=== PATIENT | female | born 1985 | race African-American/Black ===

== ENCOUNTER 2017-03-30 06:27 | Emergency (ER) | payer SELFPAY ==
[~2017-03-30] VITALS: Ht 157.5 cm; Wt 81.6 kg
[~2017-03-30 06:27] MED LIST: AMOXICILLIN500 MG ORAL; IBUPROFEN600 MG ORAL; NKM; NORCO 5-325 TA1 EAC1 ORAL; RANITIDINE HCL150 MG ORAL; ZOFRAN ODT4 MG ORAL
[2017-03-30 06:40] VITALS: BP 121/66
[2017-03-30] MEDS ORDERED: DuoNeb 0.5-3(2.5)mg/3ml neb HHN ONE (06:45)
--- NOTE | 2017-03-30 06:45 | Emergency Room Report ---
History of Present Illness General Chief Complaint: Pain Source: Patient Present Illness HPI Patient 31-year-old female presented after increased cough generalized body aches and subjective fever. Patient reported having a sore throat. She gradual onset of symptoms. Patient stated that she had fever yesterday. Patient not taking medications. She took some [id number] cough medications. She denied being . She denied any leg pain or swelling. Allergies: Coded Allergies: NO KNOWN ALLERGIES (Unverified Allergy, Unknown, 10/27/15) Patient History Past Medical History: see triage record Last Menstrual Period: march Reviewed Nursing Documentation: PMH: Agreed, PSxH: Agreed Review of Systems All Other Systems: negative except mentioned in HPI Physical Exam Vital Signs Date Time Temp Pulse Resp B/P Pulse Ox O2 Delivery O2 Flow Rate FiO2 03/30/17 06:31 98.2 102 18 131/77 98 Room Air Sp02 EP Interpretation: reviewed, normal General Appearance: normal inspection, well appearing, no apparent distress, alert, GCS 15 Head: atraumatic ENT: normal ENT inspection, hearing grossly normal, normal voice Neck: normal inspection, full range of motion, supple, no bony tend Respiratory: normal inspection, lungs clear, normal breath sounds, no respiratory distress, no retraction, no wheezing Cardiovascular #1: regular rate, rhythm, no edema Gastrointestinal: normal inspection, normal bowel sounds, non tender, soft, no guarding, no hernia Genitourinary: no CVA tenderness Musculoskeletal: normal inspection, back normal, normal range of motion Neurologic: normal inspection, alert, oriented x3, responsive, fuel cell technician III-XII nml as tested, speech normal Psychiatric: normal inspection, judgement/insight normal, mood/affect normal Skin: normal inspection, normal color, no rash Medical Decision Making ER Course Patient presented for cough. Differential diagnosis included but was not limited to bronchitis, pneumonia, pulmonary embolism, pericarditis, asthma, foreign body. Because of complexity of patient's case limaging studies were ordered.the patient was given breathing treatment with DuoNeb. The patient is advised to follow up with primary care doctor in 1-2 days. Patient is advised to return if any worsening condition or if any changes in status that are concerning. Chest X-Ray Diagnostic Results EP Interpretation: Yes Findings: no consolidation, no effusion, no pneumothorax, no acute cardiopulmonary disease Number of Views: 1 Last Vital Signs Date Time Temp Pulse Resp B/P Pulse Ox O2 Delivery O2 Flow Rate FiO2 03/30/17 06:31 98.2 102 18 131/77 98 Room Air Status: improved Disposition: HOME, SELF-CARE Condition: Stable Dar Eagle March 30, 2017 06:45
[2017-03-30] MEDS ORDERED: PROMETHAZINE-D118 ML ORAL (06:50)
[2017-03-30] MEDS ORDERED: CLARITIN10 M1 ORAL (06:50)
[2017-03-30 07:36] VITALS: BP 121/66
--- NOTE | 2017-04-01 09:18 | Diagnostic Imaging Report ---
Indication: Dyspnea Comparison: 12/07/2008 A single view chest radiograph was obtained. Findings: Cardiomediastinal appearance is within normal limits for age. Pulmonary vascularity is appropriate. The diaphragmatic contour is smooth and costophrenic angles are sharp. No pleural effusions are identified. The bones are unremarkable. Impression: No acute findings
== END 2017-03-30 07:38 | disposition home or self-care (01) ==
LOC: EMR 06:45
DX: R05 Cough (principal); J02.9 Acute pharyngitis, unspecified; R52 Pain, unspecified
CPT/HCPCS: 71010; 81025; 94640; 94664; 99284; J7620

== ENCOUNTER 2017-05-28 11:56 | Emergency (ER) | payer SELFPAY ==
[~2017-05-28] VITALS: Ht 157.5 cm; Wt 77.1 kg
[~2017-05-28 11:56] MED LIST changes: +CLARITIN10 M1 ORAL; +PROMETHAZINE-D118 ML ORAL
[2017-05-28 12:44] VITALS: BP 129/74
--- NOTE | 2017-05-28 12:47 | Emergency Room Report ---
History of Present Illness General Chief Complaint: Flu Like Symptoms Source: Medical Record Present Illness HPI 31-year-old female presents to the emergency department complaining of intermittent productive cough, nasal congestion, general malaise, subjective fevers, chest congestion x1 month. Patient states that she was previously treated conservatively and took all medications without relief. Patient states that she continues to have symptoms. She denies recent travel or ill contacts. Patient denies sore throat, neck pain or stiffness. Patient does report upper back pain that she describes as a tight discomfort that is worsened by coughing. Denies trauma or fall, denies edema.Denies CP, Palpitations, LOC, AMS , dizziness, Changes in Vision, Sensation, paresthesias, or a sudden severe headache. Allergies: Coded Allergies: NO KNOWN ALLERGIES (Unverified Allergy, Unknown, 10/27/15) Patient History Past Medical History: see triage record Past Surgical History: none Pertinent Family History: none Last Menstrual Period: Now: No : 2 Para: 2 Reviewed Nursing Documentation: PMH: Agreed, PSxH: Agreed Nursing Documentation-PMH Past Medical History: No History, Except For Review of Systems All Other Systems: negative except mentioned in HPI Physical Exam Vital Signs Date Time Temp Pulse Resp B/P Pulse Ox O2 Delivery O2 Flow Rate FiO2 05/28/17 12:03 99.7 108 18 129/74 97 Room Air Sp02 EP Interpretation: reviewed, normal General Appearance: no apparent distress, alert, GCS 15 Head: normocephalic, atraumatic Eyes: bilateral eye PERRL, bilateral eye normal inspection ENT: hearing grossly normal, normal pharynx, no angioedema, normal voice Neck: full range of motion, no meningismus, no bony tend, supple/symm/no masses Respiratory: chest non-tender, lungs clear, normal breath sounds, no wheezing, speaking full sentences Cardiovascular #1: regular rate, rhythm, no edema Gastrointestinal: non tender, soft, no guarding, no rebound Rectal: deferred Genitourinary: normal inspection, no CVA tenderness Musculoskeletal: back normal, gait/station normal, normal range of motion, tender - thoracic paraspinal ttp, no midline ttp. Neurologic: alert, oriented x3, responsive, motor strength/tone normal, sensory intact, normal gait, speech normal Psychiatric: judgement/insight normal, memory normal, mood/affect normal Skin: normal color, no rash, warm/dry, well hydrated Lymphatic: no adenopathy Medical Decision Making PA Attestation Dr. don is my supervising Physician whom patient management has been discussed with. Diagnostic Impression: Primary Impression: Atypical pneumonia Additional Impression: Muscle strain ER Course 31-year-old female presents to the emergency department complaining of intermittent productive cough, nasal congestion, general malaise, subjective fevers, chest congestion x1 month. Patient states that she was previously treated conservatively and took all medications without relief. Patient states that she continues to have symptoms. She denies recent travel or ill contacts. Patient denies sore throat, neck pain or stiffness. Patient does report upper back pain that she describes as a tight discomfort that is worsened by coughing. Denies trauma or fall, denies edema, dyspnea, SOB or wheezing.Denies CP, Palpitations, LOC, AMS, dizziness, Changes in Vision, Sensation, paresthesias, or a sudden severe headache. Ddx considered but are not limited to URI, pneumonia, PE, strep pharyngitis, meningitis, [place]. Vital signs: Pt. is afebrile, mildly tachycardic at 108 bpm- the remaining VS are WNL H&PE are most consistent with atypical pneumonia and muscle strain, pt. is tachycardic, and reports intermittent fevers with productive cough. will treat pt. with abx as she failed conservative therapy no LAD to suggest mono. ORDERS: none required at this time, the diagnosis is clinical ED INTERVENTIONS: -Motrin PO DISCHARGE: At this time pt. is stable for d/c to home. Will provide printed patient care instructions, and any necessary prescriptions. Care plan and follow up instructions have been discussed with the patient prior to discharge. Last Vital Signs Date Time Temp Pulse Resp B/P Pulse Ox O2 Delivery O2 Flow Rate FiO2 05/28/17 12:13 108 18 Room Air 05/28/17 12:03 99.7 129/74 97 Disposition: HOME, SELF-CARE Condition: Stable Scripts Cetirizine Hcl* (ZYRTEC*) 10 Mg Tablet 10 MG ORAL DAILY, #30 TAB 0 Refills Prov: Moon Hannon P.A. 05/28/17 Ibuprofen* (MOTRIN*) 600 Mg Tablet 600 MG ORAL THREE TIMES A DAY, #20 TAB 0 Refills Prov: HannonMoon chavis 05/28/17 Cyclobenzaprine Hcl* (FLEXERIL*) 10 Mg Tablet 10 MG ORAL THREE TIMES A DAY for 7 Days, #21 TAB Prov: Moon Hannon 05/28/17 Guaifenesin (Guaifenesin) 1,200 Mg Tab.er.12h 1200 MG PO BID for 10 Days, #20 TAB Prov: Moon Hannon 05/28/17 Azithromycin* (ZITHROMAX*) 250 Mg Tablet 250 MG ORAL DAILY, #6 TAB 0 Refills Take two tables once daily for 1 day, then one tablet once daily for 4 days. Prov: Moon Hannon 05/28/17 Referrals: NON PHYSICIAN (PCP) Patient Instructions: Upper Respiratory Infection, Adult, [id number] Additional Instructions: Take medications as directed. Follow up with a Primary Care Provider in 3-5 days, even if your symptoms have resolved. --Please review list of primary care clinics, if you do not already have a primary care provider Return sooner to ED if new symptoms occur, or current symptoms become worse. Do not drink alcohol, drive, or operate heavy machinery while taking Muscle Relaxers as this may cause drowsiness. - Please note that this Emergency Department Report was dictated using [employer] affairs vice president technology software, occasionally this can lead to erroneous entry secondary to interpretation by the dictation equipment. Moon Hannon May 28, 2017 12:46
[2017-05-28] MEDS ORDERED: ZYRTEC10 MG ORAL (12:50)
[2017-05-28] MEDS ORDERED: GUAIFENESIN1200 MG PO (12:50)
[2017-05-28] MEDS ORDERED: ZITHROMAX250 MG ORAL (12:50)
[2017-05-28] MEDS ORDERED: IBUPROFEN600 MG ORAL (12:50)
[2017-05-28] MEDS ORDERED: CYCLOBENZAPRINE10 MG ORAL (12:50)
[2017-05-28 13:05] VITALS: BP 124/69
[2017-05-28 13:08] VITALS: BP 124/69
== END 2017-05-28 13:08 | disposition home or self-care (01) ==
LOC: EMR 12:14
DX: J18.9 Pneumonia, unspecified organism (principal); S29.011A Strain of muscle and tendon of front wall of thorax, initial encounter; X58.XXXA Exposure to other specified factors, initial encounter; Y92.89 Other specified places as the place of occurrence of the external cause
CPT/HCPCS: 99284

== ENCOUNTER 2017-10-11 10:20 | Emergency (ER) | payer MEDICAID ==
[~2017-10-11] VITALS: Ht 162.6 cm; Wt 77.1 kg
[~2017-10-11 10:20] MED LIST changes: +CYCLOBENZAPRINE10 MG ORAL; +GUAIFENESIN1200 MG PO; +ZITHROMAX250 MG ORAL; +ZYRTEC10 MG ORAL
--- NOTE | 2017-10-11 10:46 | Emergency Room Report ---
History of Present Illness General Chief Complaint: Chest Pain Source: Patient Present Illness HPI The patient presents with substernal chest pain. It's pleuritic and positional. Denies any fevers or chills. She hears herself wheezing on occasion. She was seen here before and told she had a respiratory infection the question of pneumonia. She denies any productive cough at this time. She feels heaviness in her chest. Initially the pain went severe as 8/10. This helped by ibuprofen. She takes 1-2 Advil at night and this helps her out. The pain is now slick 6/10. Denies any calf pain or swelling. She was diagnosed with atypical pneumonia when she has some similar symptoms, but with more pronounced cough. Her last period was started on and normal for her. She does not believe she is . The patient occasionally smokes but rarely. No cough, NVD, dysuria, rashes, headache, joint pain, abdominal pain. Allergies: Coded Allergies: NO KNOWN ALLERGIES (Unverified Allergy, Unknown, 10/27/15) Patient History Past Medical History: see triage record Social History: Reports: smoking Social History Narrative 2 sons Last Menstrual Period: Current Reviewed Nursing Documentation: PMH: Agreed, PSxH: Agreed Nursing Documentation-PMH Past Medical History: No History, Except For Review of Systems All Other Systems: negative except mentioned in HPI Physical Exam Vital Signs Date Time Temp Pulse Resp B/P (MAP) Pulse Ox O2 Delivery O2 Flow Rate FiO2 10/11/17 10:25 97.0 74 11 119/71 100 Room Air Sp02 EP Interpretation: reviewed, normal General Appearance: well appearing, no apparent distress, GCS 15 Head: normocephalic Eyes: bilateral eye normal inspection, bilateral eye PERRL ENT: moist mucus membranes Neck: supple Respiratory: lungs clear, normal breath sounds, other - chest wall tenderness which re-creates pain Cardiovascular #1: regular rate, rhythm Cardiovascular #2: 2+ radial (R) Gastrointestinal: normal inspection, normal bowel sounds, non tender, no mass, non-distended Musculoskeletal: back normal, gait/station normal, normal range of motion, no calf tenderness Neurologic: alert, oriented x3, grossly normal Psychiatric: mood/affect normal - subdued Skin: normal inspection, warm/dry Medical Decision Making Diagnostic Impression: Primary Impression: Costochondritis ER Course Patient presents with chest pain. Ddx; costochondritis, pleurisy, pericarditis , pna, GERD amongst others. Patient refusing IV or blood draw. Hx and exam against PE. Evaluation with EKG and CXR. Treatment with ibuprofen. EKG without injury or inflammation. CXR no infiltrates. Improved with treatment. Discussed cause and need for follow up with PMD. Patient stable for outpatient observation and treatment. EKG Diagnostic Results Rate: normal Rhythm: NSR ST Segments: no acute changes Rhythm Strip Diag. Results EP Interpretation: yes Rhythm: NSR, no PVC's, no ectopy Chest X-Ray Diagnostic Results Chest X-Ray Diagnostic Results : Chest X-Ray Ordered: Yes # of Views/Limited/Complete: 1 View Indication: Chest Pain EP Interpretation: Yes Interpretation: no consolidation, no effusion, no pneumothorax, no acute cardiopulmonary disease Impression: No acute disease Electronically Signed by: James Evans MD Last Vital Signs Date Time Temp Pulse Resp B/P (MAP) Pulse Ox O2 Delivery O2 Flow Rate FiO2 10/11/17 13:13 97.0 73 17 117/70 100 Room Air Status: improved Disposition: HOME, SELF-CARE Condition: Improved Scripts Ibuprofen* (MOTRIN*) 600 Mg Tablet 600 MG ORAL Q6H Y for For Pain, #20 TAB Prov: James Evans M.D. 10/11/17 Tramadol Hcl* (ULTRAM*) 50 Mg Tablet 50 MG ORAL Q6H Y for For Pain, #10 TAB 0 Refills Prov: James Evans M.D. 10/11/17 Referrals: NON PHYSICIAN (PCP) James Evans M.D. Oct 11, 2017 10:46
--- NOTE | 2017-10-11 11:24 | Diagnostic Imaging Report ---
Indication: Chest pain Technique: XRAY CHEST 1 V Comparison: 03/30/17 Findings: The cardiomediastinal silhouette is within normal limits. There is no focal consolidation, pneumothorax or pleural effusion. Osseous structures demonstrate no acute abnormality. Impression: No acute cardiopulmonary disease.
[2017-10-11 12:02] VITALS: BP 117/70
[2017-10-11] MEDS ORDERED: TRAMADOL HCL50 MG ORAL (12:08)
[2017-10-11] MEDS ORDERED: IBUPROFEN600 MG ORAL (12:08)
[2017-10-11 13:13] VITALS: BP 117/70
--- NOTE | 2017-10-16 11:04 | Cardiology Report ---
APPROVED REPORT EKG Measurement Heart [id number] Normal sinus rhythm Normal ECG
== END 2017-10-11 12:15 | disposition home or self-care (01) ==
LOC: EMR 10:38
DX: M94.0 Chondrocostal junction syndrome [Tietze] (principal); Z87.01 Personal history of pneumonia (recurrent)
CPT/HCPCS: 71010; 93005; 99284

== ENCOUNTER 2017-10-30 10:29 | Emergency (ER) | payer MEDICAID ==
[~2017-10-30] VITALS: Ht 157.5 cm; Wt 72.6 kg
[~2017-10-30 10:29] MED LIST changes: +TRAMADOL HCL50 MG ORAL
[2017-10-30] MEDS ORDERED: DiphenhydrAMINE 50mg/ml Inj IVP ONE (11:15)
[2017-10-30] MEDS ORDERED: Ketorolac 30mg Inj IV ONE (11:15)
[2017-10-30] MEDS ORDERED: Metoclopramide 10mg/2ml Inj IVP ONE (11:15)
[2017-10-30 12:28] LABS: BASOPHILS % (AUTO) 1.8 % (0.0-2.0); EOSINOPHILS % (AUTO) 4.4 % (0.0-3.0); HEMATOCRIT 42.7 % (37.0-47.0); HEMOGLOBIN 13.4 G/DL (12.0-16.0); LYMPHOCYTES % (AUTO) 36.3 % (20.0-45.0); MEAN CORPUSCULAR VOLUME 87 FL (80-99); MONOCYTES % (AUTO) 9.5 % (1.0-10.0); PLATELET COUNT 246 K/UL (150-450); RED BLOOD COUNT 4.89 M/UL (4.20-5.40); WHITE BLOOD COUNT 8.9 K/UL (4.8-10.8)
[2017-10-30 12:30] LABS: APPEARANCE,URINE SLIGHTLY CLOUDY; BILIRUBIN, URINE NEGATIVE (NEGATIVE); GLUCOSE, URINE (UA) NEGATIVE (NEGATIVE); KETONES,URINE NEGATIVE (NEGATIVE); LEUKOCYTE ESTERASE ,URINE 1+ (NEGATIVE); NITRITE,URINE NEGATIVE (NEGATIVE); PH,URINE 7 (4.5-8.0); PROTEIN,URINE 1+ (NEGATIVE); UROBILINOGEN,URINE 8 MG/DL (0.0-1.0)
[2017-10-30 12:31] LABS: COLOR,URINE YELLOW
[2017-10-30 12:38] LABS: ANION GAP 10 mmol/L (5-15); BLOOD UREA NITROGEN 6 mg/dL (7-18); CALCIUM 8.2 MG/DL (8.5-10.1); CARBON DIOXIDE 26 MMOL/L (21-32); CHLORIDE 105 MMOL/L (98-107); CREATININE 0.8 MG/DL (0.55-1.30); INR 0.9 (0.9-1.1); POTASSIUM 3.9 MMOL/L (3.5-5.1); SODIUM 141 MMOL/L (136-145)
[2017-10-30 12:43] LABS: ALANINE AMINOTRANSFERASE 27 U/L (12-78); ALKALINE PHOSPHATASE 78 U/L (46-116); ASPARTATE AMINO TRANSFERASE 18 U/L (15-37); BILIRUBIN,TOTAL 0.4 MG/DL (0.2-1.0)
--- NOTE | 2017-10-30 13:51 | Emergency Room Report ---
History of Present Illness General Chief Complaint: Abdominal Pain Source: Patient, Medical Record Present Illness HPI Patient presents with RLQ pain which began yesterday. Constant, 6/10, not radiating. No fevers, nausea, vomiting, diarrhea. No dysuria. Uncertain if . One partner. No vaginal d/c. LNMP 3 weeks ago and normal. No URI sy, rashes, chest pain, headache. Allergies: Coded Allergies: NO KNOWN ALLERGIES (Unverified Allergy, Unknown, 10/27/15) Patient History Past Medical History: see triage record Social History: Reports: smoking Social History Narrative with son Last Menstrual Period: October 09, 2017 Now: No : 3 Para: 2 Reviewed Nursing Documentation: PMH: Agreed, PSxH: Agreed Nursing Documentation-PMH Past Medical History: No Stated History Review of Systems All Other Systems: negative except mentioned in HPI Physical Exam Vital Signs Date Time Temp Pulse Resp B/P (MAP) Pulse Ox O2 Delivery O2 Flow Rate FiO2 10/30/17 10:35 97.9 110 18 106/67 97 Room Air Sp02 EP Interpretation: reviewed, normal General Appearance: well appearing, no apparent distress, GCS 15 Head: normocephalic Eyes: bilateral eye normal inspection, bilateral eye PERRL ENT: moist mucus membranes Neck: supple Respiratory: lungs clear, normal breath sounds Cardiovascular #1: regular rate, rhythm Cardiovascular #2: 2+ radial (R) Gastrointestinal: normal inspection, normal bowel sounds, no mass, non- distended, tenderness - RLQ suprapubic Genitourinary: normal inspection, adnexa normal, cervix normal, ext genitalia/ vag normal, os closed, other - no CMT, adnexal fullness. Uterus generous Musculoskeletal: back normal, gait/station normal, normal range of motion Neurologic: alert, oriented x3, grossly normal Psychiatric: mood/affect normal Skin: normal inspection, warm/dry Medical Decision Making Diagnostic Impression: Primary Impression: Suprapubic abdominal pain ER Course Patient with R suprapubic pain. DDX: appendicitis, ectopic, UTI, ovarian cyst, fibroid, PID amongst others. Exam against PID. Urgent evaluation with labs including preg test. Treatment with IV hydration and analgesia. Labs with neg preg, clear urine, normal WBC. Patient improved with treatment. Discussed need for ultrasound if pain worsens. Patient stable for outpatient observation and treatment. Laboratory Tests Test 10/30/17 11:30 10/30/17 11:40 Urine Color Yellow Urine Appearance Slightly cloudy Urine pH 7 (4.5-8.0) Urine Specific [place] 1.005 (1.005-1.035) Urine Protein 1+ (NEGATIVE) H Urine Glucose (UA) Negative (NEGATIVE) Urine Ketones Negative (NEGATIVE) Urine Occult Blood Negative (NEGATIVE) Urine Nitrite Negative (NEGATIVE) Urine Bilirubin Negative (NEGATIVE) Urine Urobilinogen 8 MG/DL (0.0-1.0) H Urine Leukocyte Esterase 1+ (NEGATIVE) H Urine RBC 0-2 /HPF (0 - 2) Urine WBC 2-4 /HPF (0 - 2) Urine Squamous Epithelial Cells Moderate /LPF (NONE/OCC) H Urine Bacteria Few /HPF (NONE) Urine HCG, Qualitative Negative Chlamydia trachomatis RNA Pending Neisseria gonorrhoeae RNA Pending White Blood Count 8.9 K/UL (4.8-10.8) Red Blood Count 4.89 M/UL (4.20-5.40) Hemoglobin 13.4 G/DL (12.0-16.0) Hematocrit 42.7 % (37.0-47.0) Mean Corpuscular Volume 87 FL (80-99) Mean Corpuscular Hemoglobin 27.5 PG (27.0-31.0) Mean Corpuscular Hemoglobin Concent 31.5 G/DL (32.0-36.0) L Red Cell Distribution Width 13.0 % (11.6-14.8) Platelet Count 246 K/UL (150-450) Mean Platelet Volume 11.0 FL (6.5-10.1) H Neutrophils (%) (Auto) 48.0 % (45.0-75.0) Lymphocytes (%) (Auto) 36.3 % (20.0-45.0) Monocytes (%) (Auto) 9.5 % (1.0-10.0) Eosinophils (%) (Auto) 4.4 % (0.0-3.0) H Basophils (%) (Auto) 1.8 % (0.0-2.0) Prothrombin Time 9.4 SEC (9.30-11.50) Prothrombin Time INR 0.9 (0.9-1.1) PTT 26 SEC (23-33) Sodium Level 141 MMOL/L (136-145) Potassium Level 3.9 MMOL/L (3.5-5.1) Chloride Level 105 MMOL/L (98-107) Carbon Dioxide Level 26 MMOL/L (21-32) Anion Gap 10 mmol/L (5-15) Blood Urea Nitrogen 6 mg/dL (7-18) L Creatinine 0.8 MG/DL (0.55-1.30) Estimate Glomerular Filtration Rate > 60 mL/min (>60) Glucose Level 117 MG/DL (74-106) H Calcium Level 8.2 MG/DL (8.5-10.1) L Total Bilirubin 0.4 MG/DL (0.2-1.0) Aspartate Amino Transferase (AST) 18 U/L (15-37) Alanine Aminotransferase (ALT) 27 U/L (12-78) Alkaline Phosphatase 78 U/L (46-116) Total Protein 7.9 G/DL (6.4-8.2) Albumin 4.0 G/DL (3.4-5.0) Globulin 3.9 g/dL Albumin/Globulin Ratio 1.0 (1.0-2.7) Lipase 124 U/L (73-393) Microbiology Date/Time Source Procedure Growth Status 10/30/17 13:00 Vaginal Wet Prep - Final Complete Last Vital Signs Date Time Temp Pulse Resp B/P (MAP) Pulse Ox O2 Delivery O2 Flow Rate FiO2 10/30/17 14:20 97.9 79 15 110/74 100 Room Air Status: improved Disposition: HOME, SELF-CARE Condition: Improved Scripts Ibuprofen* (MOTRIN*) 600 Mg Tablet 600 MG ORAL Q6H Y for For Pain, #20 TAB Prov: James Evans M.D. 10/30/17 Tramadol Hcl* (ULTRAM*) 50 Mg Tablet 50 MG ORAL Q6H Y for For Pain, #12 TAB 0 Refills Prov: James Evans M.D. 10/30/17 James Evans M.D. Oct 30, 2017 13:51
[2017-10-30] MEDS ORDERED: TRAMADOL HCL50 MG ORAL (13:57)
[2017-10-30] MEDS ORDERED: IBUPROFEN600 MG ORAL (13:57)
[2017-10-30 14:20] VITALS: BP 110/74
== END 2017-10-30 14:20 | disposition home or self-care (01) ==
LOC: EMR 11:11
DX: R10.31 Right lower quadrant pain (principal)
CPT/HCPCS: 36415; 80053; 81003; 81025; 83690; 85025; 85610; 85730; 86850; 86900; 86901; 87210; 87491; 87590; 96361; 96374; 96375; 99284; J1200; J1885; J2765

== ENCOUNTER 2017-12-14 23:49 | Emergency (ER) | payer MEDICAID, OTHER ==
[~2017-12-14] VITALS: Ht 157.5 cm; Wt 75.7 kg
--- NOTE | 2017-12-15 00:25 | Emergency Room Report ---
History of Present Illness General Chief Complaint: Upper Respiratory Illness Source: Patient Present Illness HPI Patient with 3 days of URI, cough, SOB, aches. Took dayquil and had anxiety reaction with increased HR and dyspnea. Recognized anxiety attack and calmed herself. Improved, but still with congestion and cough. No NVD, dysuria, rashes. Some stress with work. Recurrent problems with anxiety. Allergies: Coded Allergies: NO KNOWN ALLERGIES (Unverified Allergy, Unknown, 10/27/15) Patient History Past Medical History: see triage record Social History: Reports: smoking Social History Narrative here with son Last Menstrual Period: 12/10/17 Now: No : 4 Para: 2 Reviewed Nursing Documentation: PMH: Agreed, PSxH: Agreed Nursing Documentation-PMH Past Medical History: No Stated History Review of Systems All Other Systems: negative except mentioned in HPI Physical Exam Vital Signs Date Time Temp Pulse Resp B/P (MAP) Pulse Ox O2 Delivery O2 Flow Rate FiO2 12/14/17 23:58 97.7 94 14 128/80 98 Room Air Sp02 EP Interpretation: reviewed, normal General Appearance: well appearing, no apparent distress Head: normocephalic, atraumatic Eyes: bilateral eye normal inspection, bilateral eye PERRL ENT: hearing grossly normal, normal pharynx, normal voice, TMs + canals normal , moist mucus membranes, nasal congestion - clear Neck: full range of motion, supple Respiratory: lungs clear, normal breath sounds, no respiratory distress, speaking full sentences Cardiovascular #1: regular rate, rhythm Gastrointestinal: normal inspection, overweight Musculoskeletal: gait/station normal, normal range of motion, no calf tenderness Neurologic: alert, normal gait, grossly normal Psychiatric: mood/affect normal, depressed affect Skin: no rash Medical Decision Making Diagnostic Impression: Primary Impression: Upper respiratory infection Qualified Codes: J06.9 - Acute upper respiratory infection, unspecified Additional Impression: Anxiety ER Course Patient with 3 days of URI and reaction to Dayquil. DDX: anxiety, PE, bronchitis, sinusitis, URI amongst others. Clinically, risk for PE low to nil. Needs symptomatic treatment. No imaging or labs indicated. As component is with anxiety, avoid decongestants - focus on antihistamines. Discussion with patient regarding other treatment options for anxiety. Patient stable for outpatient observation and treatment. Last Vital Signs Date Time Temp Pulse Resp B/P (MAP) Pulse Ox O2 Delivery O2 Flow Rate FiO2 12/15/17 00:36 97.7 94 14 128/80 98 Room Air Status: unchanged Disposition: HOME, SELF-CARE Condition: Stable Scripts Chlorpheniramine Maleate (CHLOR-TRIMETON) 4 Mg Tablet 4 MG PO Q6HR Y for congestion, #14 TAB Prov: James Evans M.D. 12/15/17 Guaifenesin/Codeine Phos* (ROBITUSSIN AC*) 118 Ml Liquid 1 TSP ORAL Q6H Y for For Cough, #90 ML 0 Refills Prov: James Evans M.D. 12/15/17 James Evans M.D. Dec 15, 2017 00:25
[2017-12-15] MEDS ORDERED: CHLOR-TRIMETON4 MG PO (00:27)
[2017-12-15] MEDS ORDERED: GUAIFENESIN-CO118 M1 ORAL (00:27)
[2017-12-15 00:35] VITALS: BP 128/80
[2017-12-15 00:36] VITALS: BP 128/80
== END 2017-12-15 00:37 | disposition home or self-care (01) ==
LOC: EMR 12-15 00:12
DX: J06.9 Acute upper respiratory infection, unspecified (principal); F41.9 Anxiety disorder, unspecified; F17.200 Nicotine dependence, unspecified, uncomplicated
CPT/HCPCS: 99283

== ENCOUNTER 2018-09-03 23:39 | Emergency (ER) | payer MEDICAID ==
[~2018-09-03] VITALS: Ht 160 cm; Wt 68.0 kg
[~2018-09-03 23:39] MED LIST changes: +CHLOR-TRIMETON4 MG PO; +GUAIFENESIN-CO118 M1 ORAL
[2018-09-04] MEDS ORDERED: Albuterol ud Inhalation HHN ONE (00:15)
[2018-09-04] MEDS ORDERED: Solu-MEDROL 125mg Inj IVP ONE (00:15)
[2018-09-04] MEDS ORDERED: Ketorolac 30mg Inj IV ONE (00:15)
[2018-09-04] MEDS ORDERED: ALBUTEROL SULF8.5 GM INH (00:17)
[2018-09-04] MEDS ORDERED: IBUPROFEN600 MG ORAL (00:17)
[2018-09-04] MEDS ORDERED: GUAIFENESIN-CO118 M1 ORAL (00:17)
--- NOTE | 2018-09-04 00:17 | Emergency Room Report ---
History of Present Illness General Chief Complaint: Flu Like Symptoms Source: Patient Present Illness HPI Is a 32-year-old female with no significant past medical history. She presents with chief complaint of cough, fever, chills, and body pain. Onset for last 2 days. Also congested. Worse with inspiration and coughing. Better with rest. [id number]-[id number] medicine is not helping. Coughing productive of whitish phlegm. Fever subjective nature. Pain is 8 out of 10. Allergies: Coded Allergies: NO KNOWN ALLERGIES (Unverified Allergy, Unknown, 10/27/15) Patient History Past Medical History: see triage record, old chart reviewed Past Surgical History: other Pertinent Family History: none Social History: Denies: smoking Last Menstrual Period: 08/26/18 Now: No : 4 Para: 2 Immunizations: other Reviewed Nursing Documentation: PMH: Agreed; PSxH: Agreed Nursing Documentation-PMH Past Medical History: No History, Except For Review of Systems Constitutional: Reports: chills, fever, malaise Eye: Denies: eye pain, blurred vision ENT: Denies: ear pain, nose congestion, throat swelling Respiratory: Reports: cough, sputum; Denies: shortness of breath Cardiovascular: Reports: chest pain; Denies: palpitations Gastrointestinal: Denies: abdominal pain, diarrhea, nausea, vomiting Musculoskeletal: Denies: back pain, joint pain Skin: Denies: rash Neurological: Denies: headache, numbness Endocrine: Denies: increased thirst, increased urine Hematologic/Lymphatic: Denies: easy bruising All Other Systems: negative except mentioned in HPI Physical Exam Vital Signs Date Time Temp Pulse Resp B/P (MAP) Pulse Ox O2 Delivery O2 Flow Rate FiO2 09/03/18 23:54 98.1 86 18 126/76 98 Room Air vitals normal Sp02 EP Interpretation: reviewed, normal General Appearance: well appearing, no apparent distress, alert Head: normocephalic, atraumatic Eyes: bilateral eye PERRL, bilateral eye EOMI ENT: hearing grossly normal, normal pharynx Neck: full range of motion, supple, no meningismus Respiratory: chest non-tender, lungs clear, normal breath sounds, other - coughing with inspiration Cardiovascular #1: regular rate, rhythm, no murmur Gastrointestinal: normal bowel sounds, non tender, no mass, no organomegaly, no bruit, non-distended Musculoskeletal: back normal, gait/station normal, normal range of motion Psychiatric: mood/affect normal Skin: warm/dry Medical Decision Making Diagnostic Impression: Primary Impression: Flu-like symptoms Additional Impression: Upper respiratory infection Qualified Codes: J06.9 - Acute upper respiratory infection, unspecified ER Course Patient presents with upper rest or infection with bronchospasm. No evidence of bacterial infection to warrant antibiotics. We'll discharge home. Last Vital Signs Date Time Temp Pulse Resp B/P (MAP) Pulse Ox O2 Delivery O2 Flow Rate FiO2 09/03/18 23:54 98.1 86 18 126/76 98 Room Air Status: improved Disposition: HOME, SELF-CARE Condition: Stable Scripts Guaifenesin/Codeine Phos* (ROBITUSSIN AC*) 118 Ml Liquid 5 ML ORAL Q6H PRN for For Cough, #118 ML 0 Refills Prov: Kenrick Ybarra MD 09/04/18 Ibuprofen* (MOTRIN*) 600 Mg Tablet 600 MG ORAL THREE TIMES A DAY, #30 TAB 0 Refills Prov: Kenrick Ybarra MD 09/04/18 Albuterol Sulfate* (ALBUTEROL SULFATE MDI*) 8.5 Gm Hfa.aer.ad 2 PUFF INH Q4H PRN for cough/wheezing, #1 EA 0 Refills Prov: Kenrick Ybarra MD 09/04/18 Additional Instructions: Follow-up with your Dr. in 2-3 days. Increase fluid. Return if symptom worsen. Kenrick Ybarra MD Sep 04, 2018 00:17
[2018-09-04 00:32] VITALS: BP 130/80
[2018-09-04 01:05] VITALS: BP 130/80
== END 2018-09-04 01:05 | disposition home or self-care (01) ==
LOC: EMR 09-04 00:24
DX: J06.9 Acute upper respiratory infection, unspecified (principal)
CPT/HCPCS: 94640; 94664; 96361; 96374; 96375; 99284; J1885; J2930

== ENCOUNTER 2019-04-14 11:01 | Emergency (ER) | payer MEDICAID ==
[~2019-04-14] VITALS: Ht 157.5 cm; Wt 63.5 kg
[~2019-04-14 11:01] MED LIST changes: +ALBUTEROL SULF8.5 GM INH
[2019-04-14] MEDS ORDERED: NKM (11:10)
[2019-04-14 12:19] VITALS: BP 119/65
[2019-04-14] MEDS ORDERED: ALBUTEROL SULF8.5 GM INH (12:37)
[2019-04-14] MEDS ORDERED: PROMETHAZINE-C118 M1 ORAL (12:37)
[2019-04-14] MEDS ORDERED: FIORICET1 EA ORAL (12:37)
[2019-04-14 12:45] VITALS: BP 119/65
--- NOTE | 2019-04-15 14:13 | Emergency Room Report ---
History of Present Illness General Chief Complaint: Headache Source: Patient Present Illness HPI 33-year-old female presents ED for evaluation. Patient complaining of cough for the last 3 days. Cough is dry. Worse at night. Denies fevers or chills. Is having pain with coughing. Midsternal, dull, 7 out of 10, nonradiating. States that she has had this similar pain before after repeated bouts of coughing. States that she is also been experiencing a headache. Which started yesterday. Throbbing, frontal, 10, nonradiating. Denies photophobia or blurry vision. Denies nausea or vomiting. Denies neck stiffness. No other aggravating relieving factors. Denies any other associated symptoms Allergies: Coded Allergies: NO KNOWN ALLERGIES (Unverified Allergy, Unknown, 10/27/15) Patient History Past Medical History: none Past Surgical History: none Pertinent Family History: none Social History: Denies: smoking, alcohol use, drug use Last Menstrual Period: april Now: No : 4 Para: 2 Immunizations: UTD Reviewed Nursing Documentation: PMH: Agreed; PSxH: Agreed Review of Systems All Other Systems: negative except mentioned in HPI Physical Exam Vital Signs Date Time Temp Pulse Resp B/P (MAP) Pulse Ox O2 Delivery O2 Flow Rate FiO2 04/14/19 11:06 98.1 94 18 118/70 (86) 100 Room Air Sp02 EP Interpretation: reviewed, normal General Appearance: no apparent distress, alert, GCS 15, non-toxic Head: normocephalic, atraumatic Eyes: bilateral eye normal inspection, bilateral eye PERRL, bilateral eye EOMI ENT: hearing grossly normal, normal pharynx, no angioedema, normal voice Neck: full range of motion, supple, no meningismus, supple/symm/no masses Respiratory: chest non-tender, lungs clear, normal breath sounds, speaking full sentences Cardiovascular #1: regular rate, rhythm, no edema Cardiovascular #2: 2+ carotid (R), 2+ carotid (L), 2+ radial (R), 2+ radial (L) , 2+ dorsalis pedis (R), 2+ dorsalis pedis (L) Gastrointestinal: normal bowel sounds, non tender, soft, non-distended, no guarding, no rebound Rectal: deferred Genitourinary: normal inspection, no CVA tenderness Musculoskeletal: back normal, gait/station normal, normal range of motion, non- tender Neurologic: alert, oriented x3, responsive, crap game box person III-XII nml as tested, motor strength/tone normal, sensory intact, speech normal Psychiatric: judgement/insight normal, memory normal, mood/affect normal, no suicidal/homicidal ideation Reflexes: 3+ bicep (R), 3+ bicep (L), 3+ tricep (R), 3+ tricep (L), 3+ knee (R) , 3+ knee (L) Skin: normal color, no rash, warm/dry, well hydrated Lymphatic: no adenopathy Medical Decision Making Diagnostic Impression: Primary Impression: Headache Qualified Codes: R51 - Headache Additional Impressions: Bronchitis Chest wall pain ER Course Hospital Course 33-year-old female presents to ED complaining of cough, chest pain. headache Differential diagnoses include: URI, pharyngitis, otitis media, asthma Clinical course Patient placed on stretcher. After initial history, physical exam reveals a female in no acute distress. Bilateral TM unremarkable. No pharyngeal erythema. No tonsillar exudates. No lymphadenopathy. CN 2-12 grossly intact. no focal neurological deficits. lungs clear. abdomen soft. likely bronchitis, with some reproducible chest pain secondary to coughing. Headache is also likely secondary to condition. No focal neurological deficits. Given trend and Reglan. On reassessment headache is improved. Discussed findings with patient. Safe for discharge for close outpatient follow-up. Will provide referrals diagnosis - bronchitis, chest wall pain, headache Stable and discharged home. Instructed to followup with PMD. Return to ED if symptoms recur or worsen Last Vital Signs Date Time Temp Pulse Resp B/P (MAP) Pulse Ox O2 Delivery O2 Flow Rate FiO2 04/14/19 12:45 98.1 92 18 119/65 100 Room Air Status: improved Disposition: HOME, SELF-CARE Condition: Stable Scripts Codeine/Promethazine Hcl* (PROMETHAZINE-CODEINE SYRUP*) 118 Ml Syrup 5 ML ORAL Q6H PRN for For Cough, #118 ML 0 Refills Prov: Jeffrey Coffey MD 04/14/19 Acetamin/Butalbital/Caffeine* (FIORICET*) 1 Ea Tab 1 TAB ORAL Q6H, #15 TAB 0 Refills Prov: Jeffrey Coffey MD 04/14/19 Albuterol Sulfate* (ALBUTEROL SULFATE MDI*) 8.5 Gm Hfa.aer.ad 2 PUFF INH Q4H PRN for cough/wheezing, #1 EA 0 Refills Prov: Jeffrey Coffey MD 04/14/19 Referrals: [facility],REFERRING (PCP) Departure Forms: Return to Work Return to Work Date: Apr 16, 2019 Work Restrictions: None Patient Instructions: Acute Bronchitis, [id number], Migraine Headache Jeffrey Coffey MD Apr 15, 2019 14:13
== END 2019-04-14 12:45 | disposition home or self-care (01) ==
LOC: EMR 11:40
DX: J20.9 Acute bronchitis, unspecified (principal); R51 Headache; R07.9 Chest pain, unspecified
CPT/HCPCS: 99282

== ENCOUNTER 2019-04-28 02:16 | Emergency (ER) | payer MEDICAID ==
[~2019-04-28] VITALS: Ht 157.5 cm; Wt 72.6 kg
[~2019-04-28 02:16] MED LIST changes: +FIORICET1 EA ORAL; +PROMETHAZINE-C118 M1 ORAL
[2019-04-28 02:29] VITALS: BP 125/52
--- NOTE | 2019-04-28 02:33 | NUR ---
ER Nurse Note: Pt came from home c/o cough for 2 weeks that is unresolved with prescribed medication. Pt states she was here 2 weeks ago for the same symptoms. Per pt, 6/10 pain due to cough. O2 at 98% RA. Pt stated she has clear discharge from her eyes but no blurry vision. Will continue to monitor.
[2019-04-28] MEDS ORDERED: PSEUDOEPHEDRINE60 MG PO (02:39)
[2019-04-28] MEDS ORDERED: AUGMENTIN 875-1 EAC1 ORAL (02:39)
[2019-04-28] MEDS ORDERED: HYDROCODON-ACE1 EA15 ORAL (02:39)
--- NOTE | 2019-04-28 02:39 | Emergency Room Report ---
History of Present Illness General Chief Complaint: Flu Like Symptoms Source: Patient Present Illness [facility] This is a 33-year-old female with no past medical history. She presents with chief complaint of headache, congestion, cough, runny nose. Is been ongoing for over 2 weeks now. She was here 2 weeks ago and was treated symptomatically. He got a little bit better but then it came back again. Headache is throbbing in nature. Mucus is yellowish in nature. Coughing is productive of sputum. Denies any fever chills. Has diffuse body pain also. Pain is 10 out of 10. Allergies: Coded Allergies: NO KNOWN ALLERGIES (Unverified Allergy, Unknown, 10/27/15) Patient History Past Medical History: see triage record, old chart reviewed Past Surgical History: none Pertinent Family History: none Social History: Denies: smoking Last Menstrual Period: 04/14/19 Now: No Immunizations: other Reviewed Nursing Documentation: PMH: Agreed; PSxH: Agreed Nursing Documentation-PMH Past Medical History: No History, Except For Review of Systems Constitutional: Reports: malaise, weakness Eye: Reports: nose congestion; Denies: eye pain, blurred vision ENT: Reports: ear pain; Denies: nose congestion, throat swelling Respiratory: Reports: cough, shortness of breath Cardiovascular: Denies: chest pain, palpitations Gastrointestinal: Denies: abdominal pain, diarrhea, nausea, vomiting Musculoskeletal: Denies: back pain, joint pain Skin: Denies: rash Neurological: Denies: headache, numbness Endocrine: Denies: increased thirst, increased urine Hematologic/Lymphatic: Denies: easy bruising All Other Systems: negative except mentioned in HPI Physical Exam Vital Signs Date Time Temp Pulse Resp B/P (MAP) Pulse Ox O2 Delivery O2 Flow Rate FiO2 04/28/19 02:18 98.1 101 16 125/52 (76) 96 Room Air Vitals normal Sp02 EP Interpretation: reviewed, normal General Appearance: well appearing, no apparent distress, alert Head: normocephalic, atraumatic Eyes: bilateral eye PERRL, bilateral eye EOMI ENT: hearing grossly normal, normal pharynx Neck: full range of motion, supple, no meningismus Respiratory: chest non-tender, lungs clear, normal breath sounds Cardiovascular #1: regular rate, rhythm, no murmur Gastrointestinal: normal bowel sounds, non tender, no mass, no organomegaly, no bruit, non-distended Musculoskeletal: back normal, gait/station normal, normal range of motion Psychiatric: mood/affect normal Skin: warm/dry Medical Decision Making Diagnostic Impression: Primary Impression: Influenza-like symptoms Additional Impression: Upper respiratory infection Qualified Codes: J06.9 - Acute upper respiratory infection, unspecified ER Course Patient with viral-like symptoms. Because is been ongoing for 2 weeks, we will put her on antibiotics. No evidence of ACS, PE, dissection to name a few. Last Vital Signs Date Time Temp Pulse Resp B/P (MAP) Pulse Ox O2 Delivery O2 Flow Rate FiO2 04/28/19 02:29 98.1 100 16 125/52 96 Room Air Status: unchanged Disposition: HOME, SELF-CARE Condition: Stable Scripts Pseudoephedrine Hcl* (SUDAFED*) 60 Mg Tablet 60 MG PO Q6H, #30 TAB Prov: Kenrick Ybarra MD 04/28/19 Hydrocodone/Acetaminophen 5-325* (HYDROCODONE/ACETAMINOPHEN 5-325*) 1 Each Tablet 1 TAB ORAL Q6H PRN for For Pain, #15 TAB 0 Refills Prov: Kenrick Ybarra MD 04/28/19 Amoxicillin/Potassium Clav 875-125* (AUGMENTIN 875-125 TABLET*) 1 Each Tablet 1 TAB ORAL TWICE A DAY, #14 TAB Prov: Kenrick Ybarra MD 04/28/19 Additional Instructions: Increase fluids. Motrin as needed for fever and pain. Follow-up with your doctor in 7 days for recheck. Return if worse. Kenrick Ybarra MD Apr 28, 2019 02:39
[2019-04-28] MEDS ORDERED: HYDROcodone/Acetamin 5/325 tab ORAL ONE (02:45)
--- NOTE | 2019-04-28 03:01 | NUR ---
ER Nurse Note: Pt seen, treated, medically cleared for discharge by ERMD. Discharge instuctions and prescriptions given with repeat verbalization by pt. Emphasized to follow up with primay care provider within one week. All orders completed per ERMD orders. Pt a&ox4, VSS, no signs of distress. ID band removed. Pt ambulaitory with steady gait, left with all belongings, left with own transportation.
[2019-04-28 03:02] VITALS: BP 125/52
== END 2019-04-28 03:05 | disposition home or self-care (01) ==
LOC: EMR 02:32
DX: R51 Headache (principal); J06.9 Acute upper respiratory infection, unspecified; R06.02 Shortness of breath
CPT/HCPCS: 99282